=== PATIENT | male | born 1990 | race Caucasian/White ===

== ENCOUNTER 2017-03-16 10:32 | Emergency (ER) | payer OTHER ==
[~2017-03-16] VITALS: Ht 180.3 cm; Wt 97.0 kg
[~2017-03-16 10:32] MED LIST: CELE10TA PO; CELE20TA PO; CYMB1CAP5 PO; DEPA500T2 PO; LORA0.5T11 PO; NAPR500T PO; PRIL40CA PO; SERO200T PO; TRAZ50TA11 PO
[2017-03-16] MEDS ORDERED: LORazepam 1 MG TAB PO STA (11:51)
[2017-03-16 13:46] VITALS: BP 138/81
== END 2017-03-16 13:48 | disposition home or self-care (01) ==
LOC: M ED 10:32
DX: F32.9 Major depressive disorder, single episode, unspecified (principal); F10.10 Alcohol abuse, uncomplicated; M54.9 Dorsalgia, unspecified; Z79.899 Other long term (current) drug therapy